=== PATIENT | male | born 1975 | race Caucasian/White ===

== ENCOUNTER 2016-03-21 13:35 | Inpatient (IN) | payer OTHER ==
[2016-03-21 15:37] VITALS: BMI 24.9
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
[2016-03-21] MEDS ORDERED: NICOTINE POLACRILEX 2 MG GUM BUC PRN (18:03)
[2016-03-21] MEDS ORDERED: MAGNESIUM CITRATE 300 ML BOTTLE PO PRN (18:03)
[2016-03-21] MEDS ORDERED: MENTHOL/PHENOL 1 EACH UD MM PRN (18:03)
[2016-03-21] MEDS ORDERED: P-EPHED 60MG/TRIPROLIDI 2.5MG TABLET PO PRN (18:03)
[2016-03-21] MEDS ORDERED: guaiFENesin/D-METHORPHAN HB 10 ML UNIT-DOSE CUPS PO PRN (18:03)
[2016-03-21] MEDS ORDERED: MAG HYDROX/AL HYDROX/SIMETH 30 ML UNIT-DOSE CUP PO PRN (18:03)
[2016-03-21] MEDS ORDERED: LOPERAMIDE HCL 2 MG CAPSULE PO PRN (18:03)
[2016-03-21] MEDS ORDERED: ACETAMINOPHEN 325 MG TABLET (FP) PO PRN (18:03)
[2016-03-21] MEDS: GABAPENTIN 400 MG CAPSULE (FP) PO SCH (21:30)
[2016-03-21] MEDS: THIAMINE HCL 100 MG TABLET (FP) PO SCH (21:31)
[2016-03-21] MEDS: diphenhydrAMINE HCL 50 MG CAPSULE PO PRN (21:31)
[2016-03-21] MEDS ORDERED: DOCUSATE SODIUM 100 MG CAPSULE (FP) PO ONE (22:00)
[2016-03-21] MEDS ORDERED: SENNOSIDES 8.6MG TABLET (FP) PO ONE (22:00)
[2016-03-21 22:50] LABS: URINE APPEARANCE CLEAR; URINE BILIRUBIN NEGATIVE (NEGATIVE); URINE BLOOD NEGATIVE (NEGATIVE); URINE COLOR YELLOW; URINE GLUCOSE (UA) NEGATIVE (NEGATIVE); URINE KETONE NEGATIVE (NEGATIVE); URINE LEUK ESTERASE NEGATIVE (NEGATIVE); URINE NITRITE NEGATIVE (NEGATIVE); URINE PROTEIN NEGATIVE (NEGATIVE); URINE UROBILINOGEN NEGATIVE E.U./dl (0.2-1.0)
[2016-03-21] MEDS ORDERED: PARoxetine HCL 10 MG TABLET (FP) PO ONE (23:00)
[2016-03-21] MEDS: RANITIDINE HCL 150 MG TABLET (FP) PO SCH (23:09)
[2016-03-22] MEDS: GABAPENTIN 400 MG CAPSULE (FP) PO SCH ×3 (07:09→21:07)
[2016-03-22] MEDS: ASPIRIN 81 MG CHEWABLE TABLETS PO SCH (09:47)
[2016-03-22] MEDS: NICOTINE 14 MG/24 HOURS TOPICAL PATCH TD SCH (09:48)
[2016-03-22] MEDS: RANITIDINE HCL 150 MG TABLET (FP) PO SCH ×2 (09:48→22:02)
[2016-03-22] MEDS: METOPROLOL SUCCINATE 25 MG TAB.SR.24H (FP) PO SCH (09:48)
[2016-03-22] MEDS: PRENATAL VITAMINS W/ FOLIC ACID TABLET (FP) PO SCH (09:48)
[2016-03-22 10:06] LABS: MCH 29.4 pg (25.7-33.7); MEAN CELL VOLUME 88.9 fl (80-96); MEAN PLT VOLUME 7.9 fl (7.5-11.1); PLATELET COUNT 283 K/MM3 (134-434); RDW 17.9 % (11.9-15.9); WHITE BLOOD COUNT 4.1 K/mm3 (4.0-10.0)
[2016-03-22 10:51] LABS: ALBUMIN 4.5 g/dl (3.4-5.0); ALK PHOS 61 U/L (45-117); ANION GAP 10 (8-16); BILIRUBIN,TOTAL 0.7 mg/dL (0.2-1.0); CALCIUM 9.6 mg/dL (8.5-10.1); CO2 26 mmol/L (21-32); CREATININE 0.8 mg/dL (0.7-1.3); GLUCOSE,RANDOM 99 mg/dL (74-106); SGOT/AST 84 U/L (15-37); SGPT/ALT 159 U/L (12-78); TOT PROT 7.7 g/dl (6.4-8.2)
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
[2016-03-22] MEDS: PARoxetine HCL 10 MG TABLET (FP) PO SCH ×2 (14:43→21:07)
--- NOTE | 2016-03-22 17:38 | EKG ---
Test Reason : Blood Pressure : / mmHG Vent. Rate : 067 BPM Atrial Rate : 067 BPM P-R Int : 160 ms QRS Dur : 094 ms QT Int : 422 ms P-R-T Axes : 049 013 031 degrees QTc Int : 445 ms NORMAL SINUS RHYTHM NORMAL ECG WHEN COMPARED WITH ECG OF 18-OCT-2015 17:40, NO SIGNIFICANT CHANGE WAS FOUND Confirmed by ANSON MAURO MD ([id number]) on 03/22/2016 5:38:21 PM Referred By: Chandrakant Posada Confirmed By:ANSON MAURO MD
[2016-03-22] MEDS: THIAMINE HCL 100 MG TABLET (FP) PO SCH (21:07)
--- NOTE | 2016-03-22 21:21 | PN ---
S Progress Note Note: received nurse call patient was doing well on senna and colace senna 2 tabs + colace 200 mg x 1 increase oral fluid continue rehab
[2016-03-22] MEDS ORDERED: DOCUSATE SODIUM 100 MG CAPSULE (FP) PO ONE (22:00)
[2016-03-22] MEDS ORDERED: SENNOSIDES 8.6MG TABLET (FP) PO ONE (22:00)
[2016-03-23] MEDS: RANITIDINE HCL 150 MG TABLET (FP) PO SCH ×2 (09:54→21:12)
[2016-03-23] MEDS: ASPIRIN 81 MG CHEWABLE TABLETS PO SCH (09:54)
[2016-03-23] MEDS: METOPROLOL SUCCINATE 25 MG TAB.SR.24H (FP) PO SCH (09:54)
[2016-03-23] MEDS: NICOTINE 14 MG/24 HOURS TOPICAL PATCH TD SCH (09:55)
[2016-03-23] MEDS: PRENATAL VITAMINS W/ FOLIC ACID TABLET (FP) PO SCH (09:55)
[2016-03-23] MEDS: PARoxetine HCL 10 MG TABLET (FP) PO SCH ×2 (09:56→22:09)
[2016-03-23] MEDS: GABAPENTIN 400 MG CAPSULE (FP) PO SCH ×3 (09:57→21:12)
[2016-03-23] MEDS: THIAMINE HCL 100 MG TABLET (FP) PO SCH (21:12)
[2016-03-23] MEDS: SENNOSIDES 8.6MG TABLET (FP) PO SCH (21:12)
[2016-03-23] MEDS: DOCUSATE SODIUM 100 MG CAPSULE (FP) PO SCH (21:12)
[2016-03-24] MEDS: METOPROLOL SUCCINATE 25 MG TAB.SR.24H (FP) PO SCH (09:50)
[2016-03-24] MEDS: PRENATAL VITAMINS W/ FOLIC ACID TABLET (FP) PO SCH (09:50)
[2016-03-24] MEDS: RANITIDINE HCL 150 MG TABLET (FP) PO SCH ×2 (09:51→21:17)
[2016-03-24] MEDS: GABAPENTIN 400 MG CAPSULE (FP) PO SCH ×3 (09:51→21:17)
[2016-03-24] MEDS: ASPIRIN 81 MG CHEWABLE TABLETS PO SCH (09:51)
[2016-03-24] MEDS: PARoxetine HCL 10 MG TABLET (FP) PO SCH ×2 (09:51→21:19)
[2016-03-24] MEDS: NICOTINE 14 MG/24 HOURS TOPICAL PATCH TD SCH (10:34)
[2016-03-24] MEDS: SENNOSIDES 8.6MG TABLET (FP) PO SCH (21:16)
[2016-03-24] MEDS: THIAMINE HCL 100 MG TABLET (FP) PO SCH (21:16)
[2016-03-24] MEDS: DOCUSATE SODIUM 100 MG CAPSULE (FP) PO SCH (21:17)
[2016-03-25] MEDS: ASPIRIN 81 MG CHEWABLE TABLETS PO SCH (09:44)
[2016-03-25] MEDS: PRENATAL VITAMINS W/ FOLIC ACID TABLET (FP) PO SCH (09:44)
[2016-03-25] MEDS: METOPROLOL SUCCINATE 25 MG TAB.SR.24H (FP) PO SCH (09:45)
[2016-03-25] MEDS: GABAPENTIN 400 MG CAPSULE (FP) PO SCH ×3 (09:45→21:35)
[2016-03-25] MEDS: PARoxetine HCL 10 MG TABLET (FP) PO SCH ×2 (09:45→21:36)
[2016-03-25] MEDS: RANITIDINE HCL 150 MG TABLET (FP) PO SCH ×2 (09:45→21:35)
[2016-03-25] MEDS: NICOTINE 14 MG/24 HOURS TOPICAL PATCH TD SCH (09:46)
[2016-03-25] MEDS: diphenhydrAMINE HCL 50 MG CAPSULE PO PRN (21:34)
[2016-03-25] MEDS: DOCUSATE SODIUM 100 MG CAPSULE (FP) PO SCH (21:34)
[2016-03-25] MEDS: THIAMINE HCL 100 MG TABLET (FP) PO SCH (21:34)
[2016-03-25] MEDS: SENNOSIDES 8.6MG TABLET (FP) PO SCH (21:34)
[2016-03-26] MEDS: PRENATAL VITAMINS W/ FOLIC ACID TABLET (FP) PO SCH (09:42)
[2016-03-26] MEDS: RANITIDINE HCL 150 MG TABLET (FP) PO SCH ×2 (09:42→21:26)
[2016-03-26] MEDS: ASPIRIN 81 MG CHEWABLE TABLETS PO SCH (09:42)
[2016-03-26] MEDS: GABAPENTIN 400 MG CAPSULE (FP) PO SCH ×3 (09:42→22:21)
[2016-03-26] MEDS: PARoxetine HCL 10 MG TABLET (FP) PO SCH ×2 (09:42→21:25)
[2016-03-26] MEDS: NICOTINE 14 MG/24 HOURS TOPICAL PATCH TD SCH (09:43)
[2016-03-26] MEDS: METOPROLOL SUCCINATE 25 MG TAB.SR.24H (FP) PO SCH (09:43)
[2016-03-26] MEDS: THIAMINE HCL 100 MG TABLET (FP) PO SCH (21:25)
[2016-03-26] MEDS: DOCUSATE SODIUM 100 MG CAPSULE (FP) PO SCH (21:25)
[2016-03-26] MEDS: diphenhydrAMINE HCL 50 MG CAPSULE PO PRN (21:26)
[2016-03-26] MEDS: SENNOSIDES 8.6MG TABLET (FP) PO SCH (21:26)
[2016-03-26] MEDS ORDERED: DOCUSATE SODIUM 100 MG CAPSULE (FP) PO SCH (22:00)
[2016-03-26] MEDS ORDERED: SENNOSIDES 8.6MG TABLET (FP) PO SCH (22:00)
[2016-03-27] MEDS: PRENATAL VITAMINS W/ FOLIC ACID TABLET (FP) PO SCH (09:35)
[2016-03-27] MEDS: METOPROLOL SUCCINATE 25 MG TAB.SR.24H (FP) PO SCH (09:36)
[2016-03-27] MEDS: NICOTINE 14 MG/24 HOURS TOPICAL PATCH TD SCH (09:37)
[2016-03-27] MEDS: ASPIRIN 81 MG CHEWABLE TABLETS PO SCH (09:37)
[2016-03-27] MEDS: GABAPENTIN 400 MG CAPSULE (FP) PO SCH ×3 (09:37→22:08)
[2016-03-27] MEDS: PARoxetine HCL 10 MG TABLET (FP) PO SCH ×2 (09:37→22:08)
[2016-03-27] MEDS: RANITIDINE HCL 150 MG TABLET (FP) PO SCH ×2 (09:37→22:08)
[2016-03-27] MEDS: THIAMINE HCL 100 MG TABLET (FP) PO SCH (22:07)
[2016-03-27] MEDS: SENNOSIDES 8.6MG TABLET (FP) PO SCH (22:08)
[2016-03-27] MEDS: DOCUSATE SODIUM 100 MG CAPSULE (FP) PO SCH (22:08)
[2016-03-28] MEDS: PARoxetine HCL 10 MG TABLET (FP) PO SCH ×2 (09:59→21:43)
[2016-03-28] MEDS: ASPIRIN 81 MG CHEWABLE TABLETS PO SCH (09:59)
[2016-03-28] MEDS: GABAPENTIN 400 MG CAPSULE (FP) PO SCH ×3 (09:59→21:44)
[2016-03-28] MEDS: NICOTINE 14 MG/24 HOURS TOPICAL PATCH TD SCH (09:59)
[2016-03-28] MEDS: RANITIDINE HCL 150 MG TABLET (FP) PO SCH ×2 (09:59→21:43)
[2016-03-28] MEDS: PRENATAL VITAMINS W/ FOLIC ACID TABLET (FP) PO SCH (09:59)
[2016-03-28] MEDS: METOPROLOL SUCCINATE 25 MG TAB.SR.24H (FP) PO SCH (10:00)
[2016-03-28] MEDS: SENNOSIDES 8.6MG TABLET (FP) PO SCH (21:43)
[2016-03-28] MEDS: DOCUSATE SODIUM 100 MG CAPSULE (FP) PO SCH (21:43)
[2016-03-28] MEDS: diphenhydrAMINE HCL 50 MG CAPSULE PO PRN (21:44)
[2016-03-28] MEDS: THIAMINE HCL 100 MG TABLET (FP) PO SCH (22:39)
[2016-03-29] MEDS: PARoxetine HCL 10 MG TABLET (FP) PO SCH ×2 (09:48→21:15)
[2016-03-29] MEDS: METOPROLOL SUCCINATE 25 MG TAB.SR.24H (FP) PO SCH (09:48)
[2016-03-29] MEDS: GABAPENTIN 400 MG CAPSULE (FP) PO SCH ×3 (09:48→21:14)
[2016-03-29] MEDS: RANITIDINE HCL 150 MG TABLET (FP) PO SCH ×2 (09:48→21:16)
[2016-03-29] MEDS: ASPIRIN 81 MG CHEWABLE TABLETS PO SCH (09:48)
[2016-03-29] MEDS: PRENATAL VITAMINS W/ FOLIC ACID TABLET (FP) PO SCH (09:48)
[2016-03-29] MEDS: NICOTINE 14 MG/24 HOURS TOPICAL PATCH TD SCH (09:49)
[2016-03-29] MEDS ORDERED: PARoxetine HCL 20 MG TABLET (FP) PO ONE (12:04)
[2016-03-29] MEDS: THIAMINE HCL 100 MG TABLET (FP) PO SCH (12:07)
--- NOTE | 2016-03-29 12:09 | PN ---
Psychiatric Progress Note Vital Signs: Vital Signs Period Temp Pulse Resp BP Sys/Arroyo Pulse Ox Last 24 Hr 97.4 F 75-86 16-18 124-134/64-83 Date of Session: 03/29/16 Chief Complaint:: "I feel very anxious" HPI: Patient addressing Alcohol Dependence comorbid with Nicotine Dependence, Anxiety Disorder and Alcohol-Induced Sleep Disorder ROS: AFib, GERD, Neuropathy Current Medications: Active Medications Generic Name Dose Route Start Last Admin Trade Name Freq PRN Reason Stop Dose Admin Al Hydroxide/Mg Hydroxide 30 ml 03/21/16 18:03 Mylanta Oral Suspension - PO Q6H PRN DYSPEPSIA Aspirin 81 mg 03/22/16 10:00 03/29/16 09:48 Asa - PO 81 mg DAILY DEEPALI Administration Diphenhydramine HCl 50 mg 03/21/16 22:00 03/28/16 21:44 Benadryl - PO 50 mg HSMR1 PRN Administration INSOMNIA Docusate Sodium 300 mg 03/23/16 22:00 03/28/16 21:43 Colace - PO 300 mg HS DEEPALI Administration Eucalyptus/Menthol/Phenol/Sorbitol 1 each 03/21/16 18:03 Cepastat Lozenge - MM Q4H PRN SORE THROAT Gabapentin 400 mg 03/22/16 22:00 03/29/16 09:48 Neurontin - PO Not Given TID@1000,1400,2200 DEEPALI Guaifenesin 10 ml 03/21/16 18:03 Robitussin Dm - PO Q6H PRN COUGH Hydroxyzine Pamoate 50 mg 03/21/16 18:03 Vistaril - PO Q4H PRN AGITATION Loperamide HCl 4 mg 03/21/16 18:03 Imodium - PO Q6H PRN DIARRHEA Magnesium Citrate 300 ml 03/21/16 18:03 Citroma - PO Q48H PRN CONSTIPATION Magnesium Hydroxide 30 ml 03/21/16 18:03 Milk Of Magnesia - PO DAILY PRN CONSTIPATION Metoprolol Succinate 12.5 mg 03/22/16 10:00 03/29/16 09:48 Toprol Xl - PO 12.5 mg DAILY DEEPALI Administration Nicotine 14 mg 03/22/16 10:00 03/29/16 09:49 Nicoderm Patch - TD 14 mg DAILY DEEPALI Administration Nicotine Polacrilex 2 mg 03/21/16 18:03 Nicorette Gum - BUC Q2H PRN NICOTINE REPLACEMENT RX Paroxetine HCl 10 mg 03/22/16 13:15 03/29/16 09:48 Paxil - PO 10 mg BID DEEPALI Administration Paroxetine HCl 20 mg 03/29/16 12:04 Paxil - PO 03/29/16 12:05 ONCE ONE Paroxetine HCl 30 mg 03/30/16 10:00 Paxil - PO DAILY DEEPALI Multivit/Folic Acid/Iron 1 tab 03/22/16 10:00 03/29/16 09:48 Vitamins (Sjr) - PO 1 tab DAILY DEEPALI Administration Pseudoephedrine/Triprolidine 1 combo 03/21/16 18:03 Actifed - PO TID PRN NASAL CONGESTION Ranitidine HCl 150 mg 03/21/16 22:00 03/29/16 09:48 Zantac - PO 150 mg BID DEEPALI Administration Senna 3 tab 03/23/16 22:00 03/28/16 21:43 Senna - PO 3 tab HS DEEPALI Administration Thiamine HCl 100 mg 03/29/16 10:30 Vitamin B1 - PO DAILY DEEPALI Medication(s) Change(s): Increase Paxil dosage to 30 mg po daily Current Side Effect: No Lab tests ordered: Yes Lab tests reviewed: Yes Provider note:: Patient reports that he has been feeling very anxious despite taking Paxil 20 mg/day. Reports that he was told by the prescribing psychiatrist to increase medication to 30 mg/day if the response to present dosage is not adequate. So Paxil dosage will be increased to 30 mg po daily starting today and will be given in a morning single dose as requested by patient Total face to face time:: 25 Mental Status Exam - Mental Status Exam Alert and Oriented to: Time, Place, Person Cognitive Function: Fair Patient Appearance: Well Groomed Mood: Anxious (very) Affect: Appropriate Patient Behavior: Cooperative Speech Pattern: Clear Voice Loudness: Normal Thought Process: Intact Thought Disorder: Not Present Hallucinations: Denies Suicidal Ideation: Denies Insight/Judgement: Fair Sleep: Fair Appetite: Good Muscle strength/Tone: Normal Gait/Station: Normal Psychiatric Treatment Plan - Problem List (1) Alcohol dependence with uncomplicated withdrawal Current Visit: Yes (2) Nicotine dependence Current Visit: Yes Qualifiers: Nicotine product type: cigarettes Substance use status: in withdrawal Qualified Code(s): F17.213 - Nicotine dependence, cigarettes, with withdrawal (3) Anxiety disorder Current Visit: Yes (4) Alcohol-induced anxiety disorder Current Visit: No (5) Alcohol-induced sleep disorder Current Visit: Yes (6) Afib Current Visit: Yes (7) GERD (gastroesophageal reflux disease) Current Visit: Yes Qualifiers: Esophagitis presence: without esophagitis Qualified Code(s): K21.9 - Gastro-esophageal reflux disease without esophagitis Comment: zantac (8) Neuropathy Current Visit: Yes Comment: neurontin 400 mg tid Initial treatment plan: 1) Discontinue Paxil 10 mg po BID. 2) Paxil 20 mg po stat and 30 mg po daily starting 03/30/16. 3) Monitor progress
[2016-03-29] MEDS ORDERED: PARoxetine HCL 10 MG TABLET (FP) ONE (12:28)
[2016-03-29] MEDS: SENNOSIDES 8.6MG TABLET (FP) PO SCH (21:13)
[2016-03-29] MEDS: DOCUSATE SODIUM 100 MG CAPSULE (FP) PO SCH (21:14)
[2016-03-29] MEDS: diphenhydrAMINE HCL 50 MG CAPSULE PO PRN (21:16)
[2016-03-30] MEDS ORDERED: GABAPENTIN 400 MG CAPSULE (FP) PO ONE (07:05)
--- NOTE | 2016-03-30 07:10 | PN ---
S Progress Note Note: PATIENT IS HAVING PAIN BODY,BACK,NAUSEA ON NEURONTIN 400 MGS PO TID ,REFUSED TO TAKE MADICATION YESTERDAY ALSO HAVING NAUSEA NEURONTIN 400 MGS PO NOW THEN TID ZOFRAN SL 4 MGS Q 6 HRS PRN CLOSE MONITORING
[2016-03-30] MEDS: ONDANSETRON *ODT* 4 MG TABLET SL PRN ×2 (07:23→22:15)
[2016-03-30] MEDS: ASPIRIN 81 MG CHEWABLE TABLETS PO SCH (09:36)
[2016-03-30] MEDS: PRENATAL VITAMINS W/ FOLIC ACID TABLET (FP) PO SCH (09:36)
[2016-03-30] MEDS: PARoxetine HCL 10 MG TABLET (FP) PO SCH ×2 (09:36→09:38)
[2016-03-30] MEDS: GABAPENTIN 400 MG CAPSULE (FP) PO SCH ×3 (09:37→21:20)
[2016-03-30] MEDS: RANITIDINE HCL 150 MG TABLET (FP) PO SCH ×2 (09:37→21:18)
[2016-03-30] MEDS: THIAMINE HCL 100 MG TABLET (FP) PO SCH (09:38)
[2016-03-30] MEDS: METOPROLOL SUCCINATE 25 MG TAB.SR.24H (FP) PO SCH (09:38)
[2016-03-30] MEDS: NICOTINE 14 MG/24 HOURS TOPICAL PATCH TD SCH (09:41)
[2016-03-30] MEDS: SENNOSIDES 8.6MG TABLET (FP) PO SCH (21:18)
[2016-03-30] MEDS: diphenhydrAMINE HCL 50 MG CAPSULE PO PRN ×2 (21:18→22:15)
[2016-03-30] MEDS: DOCUSATE SODIUM 100 MG CAPSULE (FP) PO SCH (21:18)
[2016-03-31] MEDS: RANITIDINE HCL 150 MG TABLET (FP) PO SCH ×2 (09:35→21:11)
[2016-03-31] MEDS: PRENATAL VITAMINS W/ FOLIC ACID TABLET (FP) PO SCH (09:35)
[2016-03-31] MEDS: ASPIRIN 81 MG CHEWABLE TABLETS PO SCH (09:35)
[2016-03-31] MEDS: GABAPENTIN 400 MG CAPSULE (FP) PO SCH ×3 (09:35→21:11)
[2016-03-31] MEDS: METOPROLOL SUCCINATE 25 MG TAB.SR.24H (FP) PO SCH (09:36)
[2016-03-31] MEDS: PARoxetine HCL 10 MG TABLET (FP) PO SCH (09:36)
[2016-03-31] MEDS: THIAMINE HCL 100 MG TABLET (FP) PO SCH (09:36)
[2016-03-31] MEDS: NICOTINE 14 MG/24 HOURS TOPICAL PATCH TD SCH (11:00)
[2016-03-31] MEDS: MAGNESIUM HYDROX 2400MG/30ML ORAL SUSPENSION 30 ML CUP PO PRN (13:56)
[2016-03-31] MEDS: diphenhydrAMINE HCL 50 MG CAPSULE PO PRN ×2 (21:09→22:12)
[2016-03-31] MEDS: SENNOSIDES 8.6MG TABLET (FP) PO SCH (21:10)
[2016-03-31] MEDS: DOCUSATE SODIUM 100 MG CAPSULE (FP) PO SCH (21:12)
[2016-04-01] MEDS: RANITIDINE HCL 150 MG TABLET (FP) PO SCH ×2 (09:28→21:04)
[2016-04-01] MEDS: PARoxetine HCL 10 MG TABLET (FP) PO SCH (09:28)
[2016-04-01] MEDS: GABAPENTIN 400 MG CAPSULE (FP) PO SCH ×3 (09:28→21:03)
[2016-04-01] MEDS: ASPIRIN 81 MG CHEWABLE TABLETS PO SCH (09:28)
[2016-04-01] MEDS: METOPROLOL SUCCINATE 25 MG TAB.SR.24H (FP) PO SCH (09:28)
[2016-04-01] MEDS: PRENATAL VITAMINS W/ FOLIC ACID TABLET (FP) PO SCH (09:29)
[2016-04-01] MEDS: MAGNESIUM HYDROX 2400MG/30ML ORAL SUSPENSION 30 ML CUP PO PRN (09:30)
[2016-04-01] MEDS: THIAMINE HCL 100 MG TABLET (FP) PO SCH (09:30)
[2016-04-01] MEDS: NICOTINE 14 MG/24 HOURS TOPICAL PATCH TD SCH (13:58)
[2016-04-01] MEDS: DOCUSATE SODIUM 100 MG CAPSULE (FP) PO SCH (21:03)
[2016-04-01] MEDS: SENNOSIDES 8.6MG TABLET (FP) PO SCH (21:03)
[2016-04-01] MEDS: diphenhydrAMINE HCL 50 MG CAPSULE PO PRN (21:04)
[2016-04-01] MEDS: ONDANSETRON *ODT* 4 MG TABLET SL PRN (21:04)
[2016-04-02] MEDS: PRENATAL VITAMINS W/ FOLIC ACID TABLET (FP) PO SCH (09:43)
[2016-04-02] MEDS: GABAPENTIN 400 MG CAPSULE (FP) PO SCH ×3 (09:43→21:07)
[2016-04-02] MEDS: ASPIRIN 81 MG CHEWABLE TABLETS PO SCH (09:43)
[2016-04-02] MEDS: PARoxetine HCL 10 MG TABLET (FP) PO SCH (09:43)
[2016-04-02] MEDS: METOPROLOL SUCCINATE 25 MG TAB.SR.24H (FP) PO SCH (09:44)
[2016-04-02] MEDS: RANITIDINE HCL 150 MG TABLET (FP) PO SCH ×2 (09:44→21:07)
[2016-04-02] MEDS: THIAMINE HCL 100 MG TABLET (FP) PO SCH (09:44)
[2016-04-02] MEDS: NICOTINE 14 MG/24 HOURS TOPICAL PATCH TD SCH ×2 (09:46→12:01)
[2016-04-02] MEDS: SENNOSIDES 8.6MG TABLET (FP) PO SCH (21:07)
[2016-04-02] MEDS: diphenhydrAMINE HCL 50 MG CAPSULE PO PRN (21:07)
[2016-04-02] MEDS: DOCUSATE SODIUM 100 MG CAPSULE (FP) PO SCH (21:07)
[2016-04-02] MEDS: ONDANSETRON *ODT* 4 MG TABLET SL PRN (21:07)
[2016-04-02] MEDS: hydrOXYzine PAMOATE 50 MG CAPSULE (FP) PO PRN (22:08)
[2016-04-03] MEDS: GABAPENTIN 400 MG CAPSULE (FP) PO SCH ×3 (09:42→21:40)
[2016-04-03] MEDS: RANITIDINE HCL 150 MG TABLET (FP) PO SCH ×2 (09:42→21:40)
[2016-04-03] MEDS: PRENATAL VITAMINS W/ FOLIC ACID TABLET (FP) PO SCH (09:42)
[2016-04-03] MEDS: THIAMINE HCL 100 MG TABLET (FP) PO SCH (09:42)
[2016-04-03] MEDS: ASPIRIN 81 MG CHEWABLE TABLETS PO SCH (09:42)
[2016-04-03] MEDS: PARoxetine HCL 10 MG TABLET (FP) PO SCH (09:42)
[2016-04-03] MEDS: NICOTINE 14 MG/24 HOURS TOPICAL PATCH TD SCH (09:45)
[2016-04-03] MEDS: METOPROLOL SUCCINATE 25 MG TAB.SR.24H (FP) PO SCH (10:46)
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
[2016-04-03] MEDS: hydrOXYzine PAMOATE 50 MG CAPSULE (FP) PO PRN ×2 (15:45→21:39)
[2016-04-03] MEDS ORDERED: POLYETHYLENE GLYCOL 3350 119 GM BTL PO ONE (17:00)
[2016-04-03] MEDS: SENNOSIDES 8.6MG TABLET (FP) PO SCH (21:39)
[2016-04-03] MEDS: DOCUSATE SODIUM 100 MG CAPSULE (FP) PO SCH (21:40)
[2016-04-04 07:07] VITALS: BP 107/61; PULSE 95; TEMP 97.6
[2016-04-04] MEDS: PRENATAL VITAMINS W/ FOLIC ACID TABLET (FP) PO SCH (09:11)
[2016-04-04] MEDS: METOPROLOL SUCCINATE 25 MG TAB.SR.24H (FP) PO SCH (09:11)
[2016-04-04] MEDS: GABAPENTIN 400 MG CAPSULE (FP) PO SCH (09:12)
[2016-04-04] MEDS: PARoxetine HCL 10 MG TABLET (FP) PO SCH (09:12)
[2016-04-04] MEDS: RANITIDINE HCL 150 MG TABLET (FP) PO SCH (09:12)
[2016-04-04] MEDS: THIAMINE HCL 100 MG TABLET (FP) PO SCH (09:12)
[2016-04-04] MEDS: ASPIRIN 81 MG CHEWABLE TABLETS PO SCH (09:12)
[2016-04-04] MEDS: NICOTINE 14 MG/24 HOURS TOPICAL PATCH TD SCH (09:13)
[2016-04-04] MEDS: hydrOXYzine PAMOATE 50 MG CAPSULE (FP) PO PRN (09:13)
[2016-04-04] MEDS ORDERED: POLYETHYLENE GLYCOL 3350 119 GM BTL PO SCH (10:00)
== END 2016-04-04 09:20 | disposition home or self-care (01) | DRG 772 ==
LOC: YASAS 13:35 → Y3W 17:39
PROVIDERS: ADMIT Psychiatry & Neurology Psychiatry; ATTEND Psychiatry & Neurology Psychiatry
PROC: HZ42ZZZ Group Counseling for Substance Abuse Treatment, Cognitive-Behavioral (ICD-10-PCS; principal; 2016-04-04)
DX: F10.230 Alcohol dependence with withdrawal, uncomplicated (principal); F17.213 Nicotine dependence, cigarettes, with withdrawal; F10.24 Alcohol dependence with alcohol-induced mood disorder; F10.282 Alcohol dependence with alcohol-induced sleep disorder; I48.91 Unspecified atrial fibrillation; K21.9 Gastro-esophageal reflux disease without esophagitis; G62.1 Alcoholic polyneuropathy; K59.01 Slow transit constipation
CPT/HCPCS: 36415; 80053; 81003; 85027; 86593; 93005; 93010